=== PATIENT | female | born 1985 | race African-American/Black ===

== ENCOUNTER 2017-07-29 08:53 | Emergency (ER) | payer OTHER ==
[~2017-07-29] VITALS: Ht 177.8 cm; Wt 69.2 kg
[~2017-07-29 08:53] MED LIST: AMOXICILLIN500 MG PO; FLEXERIL10 MG PO; HYDROCODON-ACE1 EAC7 PO; IRON325 M1 PO; MOTRIN600 MG PO; Motrin PO; NAPROSYN500 MG PO; PERIOGARD480 ML MM; Percocet 5/325,Endoc PO; ULTRAM50 MG PO
[2017-07-29] MEDS ORDERED: NORCO 5/3251 TABLET PO (10:17)
[2017-07-29 10:39] VITALS: BP 138/74
== END 2017-07-29 10:44 | disposition home or self-care (01) ==
LOC: EME 08:53
DX: S61.214A Laceration without foreign body of right ring finger without damage to nail, initial encounter (principal); W26.0XXA Contact with knife, initial encounter; Y93.G3 Activity, cooking and baking
CPT/HCPCS: 99281; 99284; S0020